=== PATIENT | male | born 1995 | race Caucasian/White ===

== ENCOUNTER → 2020-04-26 11:56 | Outpatient (BNVA) | payer BC, SELFPAY | PROVIDERS: Family Provider Nurse Practitioner Family; Visit Provider Nurse Practitioner Family | DX: Z20.828 Contact with and (suspected) exposure to other viral communicable diseases (principal); J06.9 Acute upper respiratory infection, unspecified | CPT/HCPCS: 87426; 87635 ==

== ENCOUNTER 2022-05-18 01:16 | Emergency (ER) | payer SELFPAY ==
[2022-05-18 01:20] VITALS: BP 118/74; PULSE 120; RESP 34; TEMP 37.7; O2SAT 94; BMI 31.8
--- NOTE | 2022-05-18 01:28 | XRR_ITS ---
PROCEDURE INFORMATION: Exam: XR Chest Exam date and time: 05/18/2022 1:31 AM Age: 26 years old Clinical indication: Cough and fever and shortness of breath; Patient HX: Cough with SOB and fever; Additional info: SOA, cough, fever, tachypnic, tachycardic TECHNIQUE: Imaging protocol: Radiologic exam of the chest. Views: 2 views. COMPARISON: No relevant prior studies available. FINDINGS: Lungs: Low lung volumes accentuate bronchovascular markings and cardiac silhouette. Bilateral hazy reticulonodular opacities and left lower lobe patchy airspace opacities. Pleural spaces: No pleural effusion. No pneumothorax. Heart/Mediastinum: The cardiac silhouette appears enlarged, this finding is likely related to technique / low lung volumes. Bones/joints: No acute fracture. XR/XR chest 2V* [id number] IMPRESSION: Left lower lobe opacities most compatible with evolving infectious and/or inflammatory process. Recommend follow-up to resolution to exclude other less likely etiologies.
--- NOTE | 2022-05-18 01:43 | ED_ITS ---
HPI - Fever General: Chief Complaint: Fever Stated Complaint: Cough\Fever Time Seen by Provider: 05/18/22 01:28 Source: patient Mode of arrival: ambulatory Limitations: no limitations History of Present Illness: Patient presents to the emergency department today accompanied by significant other for evaluation treatment of 4 days of cough, worsening shortness of breath, sore throat, ear pain, nasal congestion, and fever. Patient noticed sudden onset of his symptoms about 4 days ago and was seen yesterday at an outside clinic. Patient was started on Tamiflu but, did not receive the flu test. Patient has had continued worsening and is not complaining of chest pain with breathing and coughing with continued shortness of breath and cough. Patient denies any previous history of asthma. He reports they did have an albuterol nebulizer at home and he took 2 treatments. He reports he felt worse after taking them. Associated symptoms: Reports nasal congestion Review of Systems General: Reports: 10 or more systems reviewed and unremarkable except in HPI and below ENMT: Reports: throat pain and nasal congestion Resp: Reports: dyspnea, wheezing, pain on inspiration and chest congestion [facility] ED PFSH: Medical History Abscess, groin Environmental and seasonal allergies Social History Smoking and tobacco status: current every day smoker smokeless tobacco Physical Exam Const: COMMON NORMALS: patient oriented x3 and alert; apparent distress (Patient is obviously ill and uncomfortable.) Eye: COMMON NORMALS: Equal, round and reactive pupils present, EOMs intact bilaterally and conjunctivae normal CONJUNCTIVA: Yes conjunctivae normal PUPIL: Yes Equal, round and reactive pupils present Lymph: LYMPHATIC: no lymphadenopathy noted Resp: OTHER: Patient is tachypneic. He has increased effort of respirations and when he coughs, is quite forceful. Patient has bilateral lower lobe crackling and breath sounds are extremely tight. Patient's oxygen saturation 94% on room air. Cardio: OTHER: Patient is tachycardic. : COMMON NORMALS: Yes no CVA tenderness BLADDER/KIDNEY EXAM: Yes no CVA tenderness Back/Pelvis: COMMON NORMALS: no CVA tenderness, thoracic and lumbar spine normal to inspection and thoraco-lumbar ROM normal Extremity: COMMON NORMALS: normal to inspection, full ROM and no pedal edema Neuro: COMMON NORMALS: patient oriented x3 SENSORIUM/ORIENTATION: Yes alert Skin: COMMON NORMALS: no rashes or lesions noted and turgor normal GENERAL SKIN EXAM: no rashes or lesions noted and turgor normal Course Vital Signs: Vital signs: Vital Signs Temperature 100.3 F H 05/18/22 02:32 Pulse Rate 91 05/18/22 02:25 Respiratory Rate 22 H 05/18/22 02:25 Blood Pressure 136/67 05/18/22 01:46 Pulse Oximetry 99 05/18/22 02:25 Oxygen Delivery Me thod 05/18/22 02:25 MDM - Fever Medical Decision Making Patient presented today with tachypnea, tachycardia, and increased effort of respiration. Patient was complaining of shortness of breath. Patient's COVID and influenza test were negative however, his [id number] still pending final interpretation by radiology, does appear to have bilateral groundglass opacities concerning for COVID-like illness. Patient's lab work is otherwise unremarkable. Patient had improvement with his Xopenex treatment and Solu- Medrol as his pulse ox went back up to 99% on room air and, patient's heart rate has decreased as well as his respiratory rate. Patient was found to be resting comfortably in the bed upon recheck. Discussed patient's case with Dr. Purdy who recommend treating like a bronchitis at this time and he was provided an inhaler to be taken home tonight from the ER, first dose of doxycycline, and prescriptions for continue doxycycline, Tessalon Perles, and prednisone to be filled at the pharmacy in the morning. Went over signs and symptoms of respiratory distress or dehydration for which the patient needs to be seen and reevaluated for immediately. Otherwise, patient may still have several days worth of symptoms and we did discuss the contagious nature of this illness as they have a small son and the is currently . Went over signs and symptoms of illness for them as well. Differential Diagnosis Unlikely abdominal pain (URI, bronchitis, flu, covid, asthma) Lab Data 05/18/22 01:55 05/18/22 01:55 Laboratory Results WBC 8.3 10^3/uL (4.0-10.0) 05/18/22 01:55 RBC 4.58 10^6/uL (4.1-5.3) 05/18/22 01:55 Hgb 12.9 g/dL (11.7-16.6) 05/18/22 01:55 Hct 38.4 % (42.0-52.0) L 05/18/22 01:55 MCV 83.8 fl (80-94) 05/18/22 01:55 MCH 28.2 pg (28.0-34.0) 05/18/22 01:55 MCHC 33.6 g/dL (30.0-36.0) 05/18/22 01:55 RDW 11.9 % (12.1-15.1) L 05/18/22 01:55 Plt Count 173 10^3/cmm (130-400) 05/18/22 01:55 MPV 9.6 fL (7.4-10.4) 05/18/22 01:55 Neut % (Auto) 73.5 % 05/18/22 01:55 Lymph % (Auto) 13.0 % 05/18/22 01:55 Turner % (Auto) 12.0 % 05/18/22 01:55 Eos % (Auto) 1.1 % 05/18/22 01:55 Baso % (Auto) 0.2 % 05/18/22 01:55 Neut # (Auto) 6.10 10^3/uL (1.8-7.7) 05/18/22 01:55 Lymph # (Auto) 1.1 10^3/uL (0.8-4.8) 05/18/22 01:55 Turner # (Auto) 1.0 10^3/uL (0.2-0.9) H 05/18/22 01:55 Eos # (Auto) 0.1 10^3/uL (0.0-0.8) 05/18/22 01:55 Baso # (Auto) 0.0 10^3/uL (0.0-0.1) 05/18/22 01:55 Nucleated RBC % (auto) 0 % 05/18/22 01:55 Nucleated RBCs # 0.0 /100WBC 05/18/22 01:55 Specimen Type Venous 05/18/22 02:10 Yefri Test N/a 05/18/22 02:10 VBG pH 7.56 (7.32-7.42) H 05/18/22 02:10 VBG pCO2 30.2 mmHg (41-51) L 05/18/22 02:10 VBG pO2 36.2 mmHg (25-40) 05/18/22 02:10 VBG HCO3 27.0 mmol/L (24-28) 05/18/22 02:10 VBG Base Excess 5.3 mmol/L (-3.0-3.0) H 05/18/22 02:10 VBG Hematocrit 40.7 % (42-52) L 05/18/22 02:10 Preliminary School Psychologist ID Anonymous 05/18/22 02:10 Sodium 135 mmol/L (136-145) L 05/18/22 01:55 Potassium 4.0 mmol/L (3.5-5.1) 05/18/22 01:55 Chloride 96 mmol/L (98-107) L 05/18/22 01:55 Carbon Dioxide 26 mmol/L (22-29) 05/18/22 01:55 Anion Gap 17.0 (5-19) 05/18/22 01:55 BUN 11 mg/dL (6-20) 05/18/22 01:55 Creatinine 0.9 mg/dL (0.7-1.2) 05/18/22 01:55 GFR Calculation 103.7 mL/min (90-130) 05/18/22 01:55 Glucose 107 mg/dL (65-115) 05/18/22 01:55 Calculated Osmolality 280 mOsm/kg (285-295) L 05/18/22 01:55 Calcium 9.2 mg/dL (8.5-10.5) 05/18/22 01:55 Total Bilirubin 0.5 mg/dL (0.15-1.2) 05/18/22 01:55 AST 19 U/L (0-40) 05/18/22 01:55 ALT 23 U/L (0-41) 05/18/22 01:55 Alkaline Phosphatase 79 U/L (40-130) 05/18/22 01:55 Total Protein 7.3 g/dL (6.6-8.7) 05/18/22 01:55 Albumin 4.1 g/dL (3.5-5.2) 05/18/22 01:55 Globulin 3.2 g/dL (1.3-4.6) 05/18/22 01:55 Influenza Type A Ag negative (Negative) 05/18/22 01:55 Influenza Type B Ag negative (Negative) 05/18/22 01:55 SARS-CoV-2 Ag (Rapid) negative (Negative) 05/18/22 01:55 Discharge Plan Discharge Patient Disposition: Home Clinical Impression: Bronchitis Condition: Stable Prescriptions: New benzonatate 100 mg capsule 100 mg PO TID Qty: 30 0RF doxycycline hyclate 100 mg tablet 100 mg PO BID 10 Days Qty: 20 0RF prednisone 20 mg tablet 20 mg PO BID 5 Days Qty: 10 0RF No Action oseltamivir [Tamiflu] 75 mg capsule 75 mg PO BID 5 Days Qty: 10 0RF Discharge Orders: Discharge ED (Routine); Ordered 05/18/22 Ordered By: Natalie Santos Referrals: Toño Abdul FNP [Primary Care Provider] - Discharge Diet: Usual diet Discharge Activity: Increase activity as tolerated Patient Instructions: Acute Bronchitis (ED) Activity Restrictions/Additional Instructions: Your influenza and COVID test were negative here in the emergency department. The chest x-ray in my opinion looks similar to what we find in patients with COVID but, your final interpretation by the radiologist has not finalized. Your lab work shows no acute concerns today. Sometimes, when you are breathing quickly for too long a time your blood gases can become abnormal however, yours are still within normal limits. You have no significant elevated white blood cell counts. After discussion with the emergency room physician here irene, we are going to treat you for a bronchitis though it is still possible you have COVID. Treatments however are very similar. We provided your first dose of antibiotic here irene as well as a large dose of steroids and a nebulizer treatment. We are sending you from the ER with an inhaler to have on hand at home. The rest of your antibiotics, steroids, and cough medications have been sent to the pharmacy on your behalf to be picked up and continued in the morning as prescribed. You can continue to take [id number] cough and cold medications as well. Continue to monitor. You may still have symptoms for several more days however, any acute worsening needs to be seen and reevaluated. Coding Level of Care Code ED Internal Recruiter for Camille Bean
[2022-05-18 01:46] VITALS: BP 136/67; PULSE 97; RESP 20; O2SAT 94
[2022-05-18 02:04] LABS: Basophils % 0.2 %; Eosinophils # 0.1 10^3/uL (0.0-0.8); Eosinophils % 1.1 %; Hematocrit 38.4 % (42.0-52.0); Hemoglobin 12.9 g/dL (11.7-16.6); Lymphocytes # 1.1 10^3/uL (0.8-4.8); Mean Corpuscular HGB Conc 33.6 g/dL (30.0-36.0); Mean Corpuscular Hemoglobin 28.2 pg (28.0-34.0); Mean Corpuscular Volume 83.8 fl (80-94); Mean Platelet Volume 9.6 fL (7.4-10.4); Neutrophils % 73.5 %; Nucleated Red Blood Cells % 0 %; Platelet Count 173 10^3/cmm (130-400); Red Blood Count 4.58 10^6/uL (4.1-5.3); Red Cell Distribution Width 11.9 % (12.1-15.1); White Blood Count 8.3 10^3/uL (4.0-10.0)
[2022-05-18] MEDS: sodium chloride 0.9% 1,000 ML 999 ML IV (02:09)
[2022-05-18 02:16] LABS: Base Excess VBG 5.3 mmol/L (-3.0-3.0); Blood Gas Sample Type Venous; PCO2 VBG 30.2 mmHg (41-51); PO2 VBG 36.2 mmHg (25-40); Venous Blood Gas Hematocrit 40.7 % (42-52); pH VBG 7.56 (7.32-7.42)
[2022-05-18 02:19] LABS: Influenza A by IFA negative (Negative); Influenza B by IFA negative (Negative); SARS Covid-2 Antigen negative (Negative)
[2022-05-18] MEDS: levalbuterol 1.25 mg/3 mL Neb INHALATION (02:22)
[2022-05-18 02:25] VITALS: PULSE 91; RESP 22; O2SAT 99
[2022-05-18 02:28] LABS: Alanine Aminotransferase 23 U/L (0-41); Albumin Level 4.1 g/dL (3.5-5.2); Alkaline Phosphatase 79 U/L (40-130); Aspartate Amino Transferase 19 U/L (0-40); Blood Urea Nitrogen 11 mg/dL (6-20); Calcium 9.2 mg/dL (8.5-10.5); Carbon Dioxide 26 mmol/L (22-29); Chloride 96 mmol/L (98-107); Globulin 3.2 g/dL (1.3-4.6); Glomerular Filtration Rate 103.7 mL/min (90-130); Glucose 107 mg/dL (65-115); Osmolality Calculated 280 mOsm/kg (285-295); Sodium 135 mmol/L (136-145); Total Bilirubin 0.5 mg/dL (0.15-1.2); Total Protein 7.3 g/dL (6.6-8.7)
[2022-05-18] MEDS: acetaminophen 500 mg Tablet 1000 MG PO (02:31)
[2022-05-18 02:32] VITALS: TEMP 37.9
[2022-05-18] MEDS: doxycycline 100 mg Tablet PO (02:49)
[2022-05-18 03:00] VITALS: BP 112/76; PULSE 104; RESP 16; O2SAT 93
[2022-05-19 12:48] LABS: Blood Gas Sample Site VENOUS
== END 2022-05-18 03:02 | disposition home or self-care (01) ==
PROVIDERS: Emergency Provider Physician Assistant; PCP Nurse Practitioner Family
DX: J40 Bronchitis, not specified as acute or chronic (principal); Z20.822 Contact with and (suspected) exposure to COVID-19; F17.220 Nicotine dependence, chewing tobacco, uncomplicated
CPT/HCPCS: 71046; 80053; 82803; 85025; 87426; 87804; 94640; 96374; 99284; J2930; J3535; J7030; J7614